=== PATIENT | male | born 1950 | race Caucasian/White ===

== ENCOUNTER 2025-01-22 12:30 | Outpatient (RCR) | payer MEDICARE, SELFPAY ==
[2025-01-08 12:06] VITALS: BMI 19.9
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
[2025-01-08 14:49] VITALS: BP 120/80; PULSE 64; TEMP 36.3
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
--- NOTE | 2025-01-15 14:41 | HO.PHP ---
PHP staff member faxed over a referral to [facility] for therapy and med management. PHP staff member is awaiting a response with the appointment dates and times.
--- NOTE | 2025-01-19 14:04 | HO.PHPPROGNO ---
Subjective Subjective Date of Service: 01/19/25 Reason For Visit: MDD,AUD Interim History: Patient seen for follow up. Past few weeks have been good. No problems Reports mood is euthymic, denies any depressive sx or anxiety. I've got lots of things to get done Future-oriented. Reports he and trying to get away for the weekend, which they have not done in some time, says drinking contirbuted to that. Denies any hopelessness or SI. Med complaint denies any AE. Says he needs a therapist, not sure if referrals went through from [facility]. Medication Compliance: Yes Side effects from medications: No Attending Groups: Yes Review of Systems Acute medical concerns: No Mental Status Exam Mental Status Exam Narrative: Alert, oriented, in no acute distress. Withdrawn but cooperative, engaged. No psychomotor agitation or neurovegetative retardation. Eye contact maintained. Mood euthymic, affect more range, less constricted. Speech normal. Thought process linear, coherent. Thought content related to stressors, transient hopelessness, denies SI or HI. No paranoia or delusional content elicited. No evidence of psychosis. Insight and judgment - fair but adequate. Diagnostics Vital Signs (24Hr): BMI result Body Mass Index 19.9 Assessment & Plan Assessment & Plan (1) Alcohol use disorder: Status: Acute Code(s): F10.90 - Alcohol use, unspecified, uncomplicated (2) Depressive disorder: Status: Acute Code(s): F32.A - Depression, unspecified (3) Mental disorder, not otherwise specified: Status: Acute Code(s): F99 - Mental disorder, not otherwise specified Assessment and Plan: r/o memory/cognitive impairment Plan Continue PHP continue bupropion XL 150 mg qam continue sertraline 25 mg qd (insists he is not depressed and does not feel he needs dose adjusted or increased) continue naltrexone 50 mg qd continue other regular medications including Keppra 500 mg BID, metoprolol 25 mg BID, clopidogrel 75 mg, famotidine Routine lab work as indicated EKG, routine for baseline QTc for medication considerations as indicated UDS as indicated VS reviewed: afebrile, BP 120/80;?64 bpm Continue to monitor Patient educated on: diagnosis, medication risk/benefits and substance abuse Informed Consent: understands Reason for contiued partial hosp. stay Substantial Risk for: med/psych decompensation Certification I certify that partial hospital treatment is medically necessary due to the symptoms and problems resulting from the patient's mental illness and the failure to treat the patient at the partial hospital level of care would likely result in the patient requiring inpatient psychiatric care which could not be prevented at a less intensive level of care. Total time managing care of this patient today __30__ minutes. Discharge Plan Discharge Attending provider: Nena Laurent Medications: Continued levetiracetam 500 mg tablet 500 mg PO BID thiamine HCl (vitamin B1) [Vitamin B-1] 100 mg tablet 100 mg PO BID clopidogrel 75 mg tablet 75 mg PO DAILY tamsulosin 0.4 mg capsule 0.4 mg PO BEDTIME sertraline 25 mg tablet 25 mg PO DAILY folic acid 1 mg tablet 1 mg PO DAILY rosuvastatin 5 mg tablet 5 mg PO DAILY bupropion HCl 150 mg tablet extended release 24 hr 150 mg PO DAILY metoprolol tartrate 25 mg tablet 25 mg PO BID budesonide-formoterol [Symbicort] 80-4.5 mcg/actuation HFA aerosol inhaler 2 puff inhalation BID pyridoxine (vitamin B6) 25 mg Tablet 25 mg PO BID famotidine 20 mg Tablet 20 mg PO DAILY multivitamin with minerals Tablet 1 tab PO DAILY aspirin 81 mg Capsule 81 mg PO DAILY naltrexone 50 mg Tablet 50 mg PO DAILY Qty: 30 0RF Discontinued zolpidem 10 mg tablet 10 mg PO BEDTIME PRN (Reason: insomnia) No Action sodium chloride 1 gram Tablet 1,000 mg PO TID Stand Alone Forms: Patient Portal Discharge page Print Language: Palestinian
== END 2025-01-22 23:59 | disposition home or self-care (01) ==
LOC: HO.PHPA 12:30
PROVIDERS: Visit Provider Psychiatry & Neurology Psychiatry
DX: F32.A Depression, unspecified (principal); F99 Mental disorder, not otherwise specified; F10.90 Alcohol use, unspecified, uncomplicated; Z79.899 Other long term (current) drug therapy
CPT/HCPCS: 90791; 90853